=== PATIENT | female | born 1990 | race Caucasian/White ===

== ENCOUNTER 2021-12-11 14:24 | Emergency (ER) | payer MEDICAID | END 2021-12-11 17:00 | disposition home or self-care (01) | LOC: JD.ED 14:24 | DX: U07.1 COVID-19 (principal); J06.9 Acute upper respiratory infection, unspecified; J01.90 Acute sinusitis, unspecified; Z88.5 Allergy status to narcotic agent | CPT/HCPCS: 87804; 99284; U0002 ==

== ENCOUNTER 2024-02-23 12:49 | Emergency (ER) | payer MEDICAID ==
[2024-02-23 15:27] LABS: CORONAVIRUS COVID-19 NAA NEGATIVE (NEGATIVE); INFLUENZA A NAA NEGATIVE (NEGATIVE)
[2024-02-23] MEDS: Dexamethasone 10 MG/ML SDV PO ONE (15:49)
== END 2024-02-23 15:50 | disposition home or self-care (01) ==
LOC: JD.ED 12:49
DX: J02.0 Streptococcal pharyngitis (principal); Z88.6 Allergy status to analgesic agent; Z79.899 Other long term (current) drug therapy
CPT/HCPCS: 0240U; 87651; 99283; J8540